=== PATIENT | male | born 1985 | race Two or more races ===

== ENCOUNTER 2024-08-07 19:58 | Inpatient (IN) | payer BC, OTHER ==
[~2024-08-07] VITALS: Ht 170.2 cm; Wt 77.7 kg
--- NOTE | 2024-08-07 20:23 | ED.PDOC ---
History of Present Illness HPI Comments 38-year-old male who comes in with chief complaint of generalized weakness going on for the past 2-3 weeks. The patient states that he also had a near syncopal episode that he is having some dizziness. The patient denies any abdominal pain but did have some vomiting as well as some diarrhea which she thinks is from his medications that he takes. He is complaining of some shortness a breath. He just states that he does not feel well so came to the emergency department's for evaluation. Time Seen by MD: 20:09 Reviewed Notes: Nurses Notes, Medications, Allergies (No allergies to medications) Allergies: Coded Allergies: No Known Drug Allergy (Verified Allergy, Unknown, 08/07/24) Information Source: Patient Mode of Arrival: Ambulatory Severity: Moderate Timing: Weeks Duration: Since onset Prehospital treatment: None Associated signs and symptoms No abdominal pain but the patient was having some vomiting as well as some shortness for breath Past Medical History PAST MEDICAL HISTORY: Cancer (Previous history of leukemia), DM Surgical History (Other): Previous spinal fusion Family History Family History: Family hx of DM, Family hx of Cancer Social History Smoker: Cigarettes Alcohol: Denies ETOH Use Drugs: Denies Drug Use Lives In: Home Constitutional: reports: fatigue, weakness; denies: chills, diaphoresis, fever, malaise, sweats, others EENTM: denies: blurred vision, double vision, ear bleeding, ear discharge, ear drainage, ear pain, ear ringing, eye pain, eye redness, hearing loss, mouth pain, mouth swelling, nasal discharge, nose bleeding, nose congestion, nose pain, photophobia, tearing, throat pain, throat swelling, voice changes, others Respiratory: reports: shortness of breath; denies: cough, hemoptysis, orthopnea, SOB at rest, SOB with excertion, stridor, wheezing, others Cardiovascular: denies: chest pain, dizzy spells, diaphoresis, Dyspnea on exertion, edema, irregular heart beat, left arm pain, lightheadedness, palpitations, PND, syncope, others Gastrointestinal: reports: diarrhea, nausea, vomiting; denies: abdomen distended, abdominal pain, blood streaked bowels, constipated, dysphagia, difficulty swallowing, hematemesis, melena, poor appetite, poor fluid intake, rectal bleeding, rectal pain, others Genitourinary: denies: burning, dysuria, flank pain, frequency, hematuria, incontinence, penile discharge, penile sore, pain, testicle pain, testicle swelling, urgency, others Neurological: denies: dizziness, fainting, headache, left sided numbness, left sided weakness, numbness, paresthesia, pre-existing deficit, right sided numbness, right sided weakness, seizure, speech problems, tingling, tremors, weakness, others Musculoskeletal: denies: back pain, gout, joint pain, joint swelling, muscle pain, muscle stiffness, neck pain, others Integumetry: denies: bruises, change in color, change in hair/nails, dryness, laceration, lesions, lumps, rash, wounds, others Allergic/Immunocompromised: denies: Difficulty Healing, Frequent Infections, Hives, Itching, others Hematologic/Lymphatic: denies: anemia, blood clots, easy bleeding, easy bruising, swollen glands, others Endocrine: denies: excessive hunger, excessive sweating, excessive thirst, excessive urination, flushing, intolerance to cold, intolerance to heat, unexplained weight gain, unexplained weight loss, others Psychiatric: denies: anxiety, bipolar disorder, depression, hopeless, panic disorder, schizophrenia, sleepless, suicidal, others Physical Exam General Appearance: Moderate Distress HEENT: Pale Conjuntivae (L), Pale Conjuntivae (R), Pharynx Normal, TMs Normal Neck: Full Range of Motion, Non-Tender, Normal, Normal Inspection Respiratory: Chest Non-Tender, Lungs Clear, No Accessory Muscle Use, No Respiratory Distress, Normal Breath Sounds Cardiovascular: No Edema, No JVD, No Murmur, No Gallop, Normal Peripheral Pulses, Regular Rate/Rhythm Breast Exam: Deferred Gastrointestinal: No Organomegaly, Non Tender, No Pulsatile Mass, Normal Bowel Sounds, Soft Genitalia: Deferred Pelvic: Deferred Rectal: Deferred Extremities: No calf tenderness, Normal capillary refill, Normal inspection, Normal range of motion, Non-tender, No pedal edema Musculoskeletal : Apperance: Normal Neurologic: Alert, tie sawyer II-XII nml as Tested, Motor Weakness, Normal Affect, Normal Mood, No Sensory Deficits Cerebellar Function: Normal Reflexes: Normal Skin: Dry, Normal Color, Warm Lymphatic: No Adenopathy Was a procedure done? Was a procedure done?: No Differential Dx Considerations may include: Generalized weakness, electrolyte imbalance, anemia, cancer X-Ray, Labs, Meds, VS Vital Signs Date Time Temp Pulse Resp B/P (MAP) Pulse Ox O2 Delivery O2 Flow Rate FiO2 08/07/24 20:25 98.4 112 16 129/82 (98) 100 98.4 Lab Test 08/07/24 21:26 08/07/24 20:29 Range/Units Urine Color Dark-yellow Yellow Urine Clarity Clear Clear Urine pH 5.5 5.0-9.0 Urine Specific [place] 1.031 1.001-1.035 Urine Protein Trace H Negative Urine Ketones Trace Negative Urine Blood Negative Negative /uL Urine Nitrite Negative Negative Urine Bilirubin Negative Negative Urine Urobilinogen 12 H Negative mg/dL Urine Leukocyte Esterase Negative Negative /uL Urine RBC 1 0 - 3 /hpf Urine Microscopic WBC 1 0-3 /HPF Urine Squamous Epithelial Cells None seen <5 /hpf Urine Bacteria Few H None Seen /hpf Urine Mucus Few None Seen Urine Glucose Normal Normal mg/dL White Blood Count 4.2 L 4.4-10.8 10^3/uL Red Blood Count 2.00 L 4.5-5.90 10^6/uL Hemoglobin 8.3 L 13.5-17.5 g/dL Hematocrit 23.5 L 41.0-53.0 % Mean Corpuscular Volume 117.8 H 80.0-100.0 fL Mean Corpuscular Hemoglobin 41.8 H 28.0-32.0 pg Mean Corpuscular Hemoglobin Concent 35.5 32.0-36.0 g/dL Red Cell Distribution Width 15.9 H 11.8-14.3 % Platelet Count 112 L 140-450 10^3/uL Mean Platelet Volume 7.6 6.9-10.8 fL Neutrophils (%) (Auto) 61.5 37.0-80.0 % Lymphocytes (%) (Auto) 35.0 10.0-50.0 % Monocytes (%) (Auto) 1.8 0.0-12.0 % Eosinophils (%) (Auto) 1.5 0.0-7.0 % Basophils (%) (Auto) 0.2 0.0-2.0 % Neutrophils # (Auto) 2.6 1.6-8.6 10 ^3/uL Lymphocytes # (Auto) 1.5 0.4-5.4 10 ^3/uL Monocytes # (Auto) 0.1 0-1.3 10 ^3/uL Eosinophils # (Auto) 0.1 0-0.8 10 ^3/uL Basophils # (Auto) 0 0-0.2 10 ^3/uL Nucleated Red Blood Cells 0.1 % Platelet Estimate Pending Sodium Level 138 136-145 mmol/L Potassium Level 4.3 3.5-5.1 mmol/L Chloride Level 102 98-107 mmol/L Carbon Dioxide Level 28 20-31 mmol/L Anion Gap 8 5-15 Blood Urea Nitrogen 17 9-23 mg/dL Creatinine 0.83 0.700-1.30 mg/dL Glomerular Filtration Rate Calc 113 >90 mL/min BUN/Creatinine Ratio 20.5 H 10.0-20.0 Serum Glucose 144 H 74-106 mg/dL Calcium Level 9.9 8.7-10.4 mg/dL IV Hep-Lock was established The patient's CBC shows a hemoglobin of 8.3 and hematocrit 23.5 The rest of the CBC is within normal limits The chemistry panel is within normal limits The patient has thrombocytopenia at 112 At this time, we are going to admit the patient Time of 1ST Reevaluation: 20:22 Reevaluation 1ST: Unchanged Patient Education/Counseling: Diagnosis, Treatment, Prognosis Family Education/Counseling: No Family Present Departure 1 Departure Time of Disposition: 21:56 Impression: Primary Impression: Severe anemia Additional Impression: Generalized weakness Disposition: ADMITTED INPATIENT [facility]mit to: [facility] Condition: Fair Critical Care Note Critical Care Time?: No Stability Stability form required: Yes Unstable for transfer: Telemetry monitoring (Telemetry monitoring required), ED Physician Assesment (Clinical assesment) Heart Score Heart Score: Heart Score Response (Comments) Value History N/A 0 EKG N/A 0 Age N/A 0 Risk Factors N/A 0 Troponin N/A 0 Total 0 TINY WEATHERS MD Aug 07, 2024 20:22
[2024-08-07 20:54] LABS: Basophils # (auto) 0 10 ^3/uL (0-0.2); Eosinophils # (auto) 0.1 10 ^3/uL (0-0.8); Eosinophils % (auto) 1.5 % (0.0-7.0); Hematocrit 23.5 % (41.0-53.0); Lymphocytes # (auto) 1.5 10 ^3/uL (0.4-5.4); Mean Corpuscular Hemoglobin 41.8 pg (28.0-32.0); Monocytes # (auto) 0.1 10 ^3/uL (0-1.3); Neutrophils # (auto) 2.6 10 ^3/uL (1.6-8.6); Nucleated Red Blood Cells % 0.1 %; White Blood Cell 4.2 10^3/uL (4.4-10.8)
[2024-08-07 20:55] LABS: Basophils % (auto) 0.2 % (0.0-2.0); Hemoglobin 8.3 g/dL (13.5-17.5); Mean Corpuscular Hgb Conc. 35.5 g/dL (32.0-36.0); Mean Corpuscular Volume 117.8 fL (80.0-100.0); Monocytes % (auto) 1.8 % (0.0-12.0); Neutrophils % (auto) 61.5 % (37.0-80.0); Platelet Count (auto) 112 10^3/uL (140-450); Red Cell Distribution Width 15.9 % (11.8-14.3)
[2024-08-07 20:59] LABS: Chloride 102 mmol/L (98-107); Potassium 4.3 mmol/L (3.5-5.1); Sodium 138 mmol/L (136-145)
[2024-08-07 21:00] LABS: Anion Gap 8 (5-15); Calcium 9.9 mg/dL (8.7-10.4); Carbon Dioxide 28 mmol/L (20-31)
[2024-08-07 21:05] LABS: BUN/Creatinine Ratio 20.5 (10.0-20.0); Blood Urea Nitrogen 17 mg/dL (9-23)
[2024-08-07 21:36] LABS: Glucose 144 mg/dL (74-106)
[2024-08-07 21:52] LABS: Urine Bacteria FEW /hpf (None Seen); Urine Blood Negative /uL (Negative); Urine Clarity Clear (Clear); Urine Color Dark-Yellow (Yellow); Urine Mucus FEW (None Seen); Urine Protein, UAD TRACE (Negative); Urine Specific Gravity 1.031 (1.001-1.035); Urine Squamous Epithelial Cell None Seen /hpf (<5); Urine Urobilinogen 12 mg/dL (Negative); Urine WBC 1 /HPF (0-3); Urine pH 5.5 (5.0-9.0)
[2024-08-07 22:10] LABS: Platelet Estimate Decreased
[2024-08-07 22:11] LABS: Anisocytosis Moderate; Macrocytosis Marked
[2024-08-07 22:12] LABS: Large Platelets FEW; Stomatocytes Few
[2024-08-07 22:13] LABS: Polychromasia Slight; Tear Drop Cells FEW
[2024-08-07] MEDS ORDERED: ONDANSETRON HCL 4 MG/2 ML VIAL IV PRN (23:15)
[2024-08-08 00:20] LABS: % Iron Saturation 58.3 % (20-55)
--- NOTE | 2024-08-08 00:22 | DVHHP2 ---
History of Present Illness Reason for Visit: Generalized weakness History of Present Illness 38-year-old male presents for evaluation of generalized weakness. Patient reports a two week history of generalized weakness with associated fatigue, nausea, shortness for breath. He reports a history of leukemia which was diagnosed at a young age. Denies any recent weight loss. No chest pain or palpitations. No other acute complaints reported. Past Medical History Leukemia, diabetes mellitus Past Surgical History Spinal fusion Family History Diabetes mellitus Smoke: <1 pack per day ALCOHOL: none Drugs: None Lives: with Family Review of Systems Review of Systems Review of systems are currently negative otherwise addressed in HPI. Allergies: Coded Allergies: No Known Drug Allergy (Verified Allergy, Unknown, 08/07/24) Medications Current Medications Medications Dose Ordered Sig/Sheela Route Start Time Stop Time Status Last Admin Dose Admin Ondansetron HCl 4 mg Q4HP PRN IV 08/07/24 23:15 Acetaminophen 650 mg Q6HP PRN PO 08/07/24 23:15 Exam Vital Signs Vital Signs Date Time Temp Pulse Resp B/P (MAP) Pulse Ox O2 Delivery O2 Flow Rate FiO2 08/07/24 20:25 98.4 112 16 129/82 (98) 100 98.4 Exam Gen: 38-year-old male in mild distress. Skin: Warm, dry, normal color and texture, no rash. HEENT: Normocephalic atraumatic, mucous membranes moist and pink. Neck: Cervical and supraclavicular nodes normal without enlargement, trachea is midline, thyroid gland is normal without masses. Pulmonary: Clear to auscultation and percussion bilaterally. Cardiac: Regular rate and rhythm. No murmur Abdomen: Soft, nontender, nondistended, bowel sounds present all 4 quadrants, no guarding, no rigidity, no organomegaly. Extremities: No cyanosis, clubbing, no edema Neuro: Cranial nerves II through XII grossly intact, normal affect and speech, no focal motor deficits. Labs/Xrays Labs Test 08/07/24 23:31 08/07/24 21:26 08/07/24 20:29 Range/Units Urine Color Dark-yellow Yellow Urine Clarity Clear Clear Urine pH 5.5 5.0-9.0 Urine Specific [place] 1.031 1.001-1.035 Urine Protein Trace H Negative Urine Ketones Trace Negative Urine Blood Negative Negative /uL Urine Nitrite Negative Negative Urine Bilirubin Negative Negative Urine Urobilinogen 12 H Negative mg/dL Urine Leukocyte Esterase Negative Negative /uL Urine RBC 1 0 - 3 /hpf Urine Microscopic WBC 1 0-3 /HPF Urine Squamous Epithelial Cells None seen <5 /hpf Urine Bacteria Few H None Seen /hpf Urine Mucus Few None Seen Urine Glucose Normal Normal mg/dL White Blood Count 4.2 L 4.4-10.8 10^3/uL Red Blood Count 2.00 L 4.5-5.90 10^6/uL Hemoglobin 8.3 L 13.5-17.5 g/dL Hematocrit 23.5 L 41.0-53.0 % Mean Corpuscular Volume 117.8 H 80.0-100.0 fL Mean Corpuscular Hemoglobin 41.8 H 28.0-32.0 pg Mean Corpuscular Hemoglobin Concent 35.5 32.0-36.0 g/dL Red Cell Distribution Width 15.9 H 11.8-14.3 % Platelet Count 112 L 140-450 10^3/uL Mean Platelet Volume 7.6 6.9-10.8 fL Neutrophils (%) (Auto) 61.5 37.0-80.0 % Lymphocytes (%) (Auto) 35.0 10.0-50.0 % Monocytes (%) (Auto) 1.8 0.0-12.0 % Eosinophils (%) (Auto) 1.5 0.0-7.0 % Basophils (%) (Auto) 0.2 0.0-2.0 % Neutrophils # (Auto) 2.6 1.6-8.6 10 ^3/uL Lymphocytes # (Auto) 1.5 0.4-5.4 10 ^3/uL Monocytes # (Auto) 0.1 0-1.3 10 ^3/uL Eosinophils # (Auto) 0.1 0-0.8 10 ^3/uL Basophils # (Auto) 0 0-0.2 10 ^3/uL Nucleated Red Blood Cells 0.1 % Platelet Estimate Decreased Large Platelets Few Polychromasia Slight Poikilocytosis (manual) Slight Anisocytosis (manual) Moderate Macrocytosis Marked Tear Drop Cells Few Stomatocytes Few Sodium Level 138 136-145 mmol/L Potassium Level 4.3 3.5-5.1 mmol/L Chloride Level 102 98-107 mmol/L Carbon Dioxide Level 28 20-31 mmol/L Anion Gap 8 5-15 Blood Urea Nitrogen 17 9-23 mg/dL Creatinine 0.83 0.700-1.30 mg/dL Glomerular Filtration Rate Calc 113 >90 mL/min BUN/Creatinine Ratio 20.5 H 10.0-20.0 Serum Glucose 144 H 74-106 mg/dL Calcium Level 9.9 8.7-10.4 mg/dL Assessment/Plan Assessment/Plan Assessment Symptomatic anemia Diabetes mellitus Pancytopenia History of leukemia Plan Admit the patient to [facility] to the hospitalist Arm panel pending Hematology consultation Resume home medications Continue treatment per orders. Plan discussed with: Patient My Orders Orders - NEETA MANUEL Procedure Category Date Status Time Burrows Stain Slide LAB 08/07/24 In Process 23:10 Iron Panel LAB 08/07/24 In Process 23:10 Type And Screen BBK 08/07/24 In Process 23:10 Precautions: LEIF 08/07/24 In Process Neutropenic 23:10 * Hematology/Oncology CONS 08/07/24 Transmitted Consult 23:10 Consistent DIET 08/08/24 Transmitted Carb(Ccho)Diabetes Breakfast Admit ADMIT 08/07/24 Transmitted 23:10 Ondansetron Hcl PHA 08/07/24 In Process (Zofran) 23:15 Condition: Stable LEIF 08/07/24 In Process 23:10 Acetaminophen Tablet PHA 08/07/24 In Process (Tylenol Tablet) 23:15 Bedrest With Bathroom LEIF 08/07/24 In Process Privileg 23:10 Date of Service: Aug 07, 2024 Billing Provider: NEETA MANUEL Common Visit Codes: [id number] INP/OBS CARE (HIGH) NEETA MANUEL Aug 08, 2024 00:22
[2024-08-08 02:25] LABS: Rapid Influenza A Negative (Negative); Rapid Influenza B Negative (Negative)
[2024-08-08 02:26] LABS: COVID19 ANTIGEN SOFIA FIA NEGATIVE (NEGATIVE)
[2024-08-08 04:13] VITALS: PULSE 66; RESP 12; O2SAT 98
[2024-08-08] MEDS: SODIUM CHLORIDE 0.9% 500 ML IV ONE (04:28)
[2024-08-08] MEDS: ACETAMINOPHEN 325 MG TAB PO PRN (05:26)
[2024-08-08 08:06] VITALS: PULSE 70; RESP 16; O2SAT 96
[2024-08-08 14:45] VITALS: BP 105/66; PULSE 106; RESP 20; TEMP 98.9; O2SAT 98
[2024-08-08] MEDS ORDERED: DOCUSATE SOD 100 MG CAP PO PRN (15:15)
[2024-08-08] MEDS ORDERED: DEXTROSE (50%) 50ML SYRG IV PRN (15:15)
[2024-08-08] MEDS ORDERED: HYDROcodone-ACET 5/325MG TAB PO PRN (15:15)
--- NOTE | 2024-08-08 15:26 | DVHPN2 ---
Subjective Patient reports having generalized weakness, weight loss, unintentional, occasional blurry vision Reviewed: Care Plan, H&P, Labs, Medications, Previous Orders Changes from previous H/P or p: No Changes General: Per HPI Objective Vitals Vital Signs Date Time Temp Pulse Resp B/P (MAP) Pulse Ox O2 Delivery O2 Flow Rate FiO2 08/08/24 14:28 98.2 98 18 115/76 (89) 100 98.2 08/08/24 08:06 Room Air* 0 21 Intake/Output Intake and Output 08/08/24 07:00 Intake Total 500 ml Balance 500 ml Intake IV Total 500 ml General Appearance: Alert, Oriented X3, Cooperative, No acute distress HEENT: Atraumatic, PERRLA Lungs: Clear to auscultation, Normal air movement Cardiovascular: Normal S1, Normal S2 Abdomen: Normal bowel sounds, Soft Skin: Dry, Intact, Other (Jaundice) Medications Current Medications Medications Dose Ordered Sig/Sheela Route Start Time Stop Time Status Last Admin Dose Admin Ondansetron HCl 4 mg Q4HP PRN IV 08/07/24 23:15 Acetaminophen 650 mg Q6HP PRN PO 08/07/24 23:15 08/08/24 05:26 650 MG Laboratory Results Laboratory Tests 08/07/24 20:29 Chemistry Test 08/07/24 20:29 Calcium Level 9.9 mg/dL (8.7-10.4) Urinalysis Test 08/07/24 21:26 Urine Color Dark-yellow (Yellow) Urine Clarity Clear (Clear) Urine pH 5.5 (5.0-9.0) Urine Specific [place] 1.031 (1.001-1.035) Urine Protein Trace (Negative) H Urine Ketones Trace (Negative) Urine Blood Negative /uL (Negative) Urine Nitrite Negative (Negative) Urine Bilirubin Negative (Negative) Urine Urobilinogen 12 mg/dL (Negative) H Urine Leukocyte Esterase Negative /uL (Negative) Urine RBC 1 /hpf (0 - 3) Urine Microscopic WBC 1 /HPF (0-3) Urine Squamous Epithelial Cells None seen /hpf (<5) Urine Bacteria Few /hpf (None Seen) H Urine Mucus Few (None Seen) Urine Glucose Normal mg/dL (Normal) Labs and/or images reviewed: Labs reviewed by me, Image(s) reviewed by me Assessment/Plan Assessment/Plan Impression: -pancytopenia -diabetes mellitus -jaundice, rule out liver disease -dyslipidemia Plan: -liver ultrasound -Brandon test, peripheral smear, LDH -check vitamin-D, B12, thiamine, folic acid -check A1c -regular insulin sliding scale -pain management Total time spent with patient discussing and formulating plan of care: 35 minutes. This medical document was created using an electronic medical record system with [employer] dictation system. Although this document has been carefully reviewed, there may still be some phonetic and typographical errors. These areas are purely typographical due to imperfections of the software programs, and do not reflect any compromise in the patient's medical care. Plan discussed with: Patient, Other (RN) My Orders Orders - AGUSTIN MONCADA NP Procedure Category Date Status Time Comprehensive LAB 08/08/24 Transmitted Metabolic Panel 15:15 Vitamin D 25-Hydroxy LAB 08/08/24 Transmitted D2 + D3 15:15 Vitamin B1 (Thiamine) LAB 08/08/24 Transmitted 15:15 Vitamin B12 LAB 08/08/24 Transmitted 15:15 Burrows Stain Slide LAB 08/08/24 Transmitted 15:15 Haptoglobin LAB 08/08/24 Transmitted 15:15 Erythrocyte LAB 08/08/24 Transmitted Sedimentation Rate 15:15 C-Reactive Protein LAB 08/08/24 Transmitted 15:15 Hydrocodone-Acet PHA 08/08/24 Logged 5/325mg Tab ([place] 15:15 Acetaminophen Tab Or PHA 08/08/24 Logged Cap (Tylenol Tablet 15:15 Docusate Sodium PHA 08/08/24 Transmitted Capsule (Colace 15:15 LIVER US 08/08/24 Transmitted 15:15 Hemoglobin A1c LAB 08/08/24 Transmitted 15:15 Lipid Panel LAB 08/08/24 Transmitted 15:15 Glucose Blood PHA 08/08/24 Transmitted (Accu-Chek Comfort 17:00 Mild Sliding Scale PHA 08/08/24 Transmitted 17:00 Dextrose 50% Syringe PHA 08/08/24 Transmitted 15:15 Date of Service: Aug 08, 2024 Billing Provider: AGUSTIN MONCADA NP Common Visit Codes: [id number] INP/OBS CARE(HIGH) AGUSTIN MONCADA NP Aug 08, 2024 15:26
--- NOTE | 2024-08-08 16:10 | DVH ---
INDICATION: jaundiced TECHNIQUE: Multiple real-time sonographic images were obtained of the right upper quadrant. COMPARISON: None FINDINGS: The liver demonstrates homogeneous echotexture without focal mass lesions. The liver measu res 15 cm. There is no intrahepatic or extrahepatic ductal dilatation. The common duct measures 0.5 cm. The gallbladder is without evidence of stone or sludge. The gallbladder wall measures 0.2 cm and is w ithin normal limits. The right kidney measures 10.7 cm. The right kidney is normal in contour, size, and shape. The echoge nicity is normal. There is no hydronephrosis. The pancreas is not well visualized due to overlying bowel gas. IMPRESSION: Unremarkable right upper quadrant sonogram.
[2024-08-08] MEDS: InsuLIN REG 1unit/0.01ml Soln (100units/ml) SC SCH (17:00)
[2024-08-08 17:30] VITALS: BP 102/63; PULSE 104; RESP 19; TEMP 98.9; O2SAT 99
[2024-08-08] MEDS: ACCU-CHEK COMFORT CURVE STRIP VI SCH (17:42)
[2024-08-08 17:48] LABS: Albumin 4.1 g/dL (3.2-4.8); Alkaline Phosphatase 54 U/L (46-116); Anion Gap 7 (5-15); BUN/Creatinine Ratio 22.1 (10.0-20.0); Blood Urea Nitrogen 15 mg/dL (9-23); Calcium 9.2 mg/dL (8.7-10.4); Carbon Dioxide 28 mmol/L (20-31); Chloride 105 mmol/L (98-107); Cholesterol 98 mg/dL (< 200); LDL Cholesterol 51 mg/dL (< 100); Potassium 3.9 mmol/L (3.5-5.1); Sodium 140 mmol/L (136-145); Total Protein 6.2 g/dL (5.7-8.2)
[2024-08-08 17:49] LABS: Alanine Aminotransferase 59 U/L (7-40); Aspartate Aminotransferase 65 U/L (13-40); Bilirubin, Total 4.8 mg/dL (0.2-1.0); Glucose 144 mg/dL (74-106); HDL Cholesterol 16 mg/dL (40-59); Triglycerides 180 mg/dL (< 150)
[2024-08-08] MEDS ORDERED: METF-372 PO (18:02)
[2024-08-08] MEDS ORDERED: DAPA1TAB4 PO (18:02)
[2024-08-08 18:23] LABS: Erythrocyte Sedimentation Rate 25 mm/hr (0-20)
[2024-08-08 20:00] VITALS: PULSE 104; RESP 20; O2SAT 100
[2024-08-08 20:35] VITALS: BP 106/62; PULSE 104; RESP 20; TEMP 98.2; O2SAT 100
[2024-08-09] VITALS (9 sets, daily range): BP systolic 91–105; BP diastolic 51–67; PULSE 59–104; RESP 16–20; TEMP 98–98.9; O2SAT 88–99
--- NOTE | 2024-08-09 11:05 | DVH ---
Exam: CT CT CHEST/AB/PL W CON- IV ONLY History: RULE OUT METASTATIC CANCER COMPARISON: None Technique: Multidetector spiral CT of the abdomen and pelvis was performed from lung bases to pubic s ymphysis. Intravenous contrast was administered during this examination. Portal venous imaging was o btained. Axial, coronal and sagittal multiplanar reformats were performed by the technologist on a [employer] workstation. Radiation Dose : 1. Abdomen/Pelvis: CTDIvol 8.52mGy, DLP 579.42 mGy*cm. Findings: Lung Bases: No acute or significant lung base finding. Normal heart size. No pleural or pericardial effusion. Liver: Hepatic steatosis. Gallbladder and Biliary Tree: Unremarkable Spleen: Splenomegaly 14.1 cm. Pancreas: The pancreas is normal in appearance without focal lesions or abnormal enhancement. Adrenal Glands: Unremarkable Kidneys: No hydronephrosis. Bladder: Unremarkable Bowel: The stomach is grossly normal in appearance. Small bowel and colon are normal in caliber and d istribution. The appendix is not visualized; however, no secondary findings of acute appendicitis daniel ntified. Ascites: Absent Lymphadenopathy: No mesenteric, retroperitoneal or periportal lymphadenopathy. Abdominal Wall and Mesentery: Unremarkable. Vasculature: The visualized abdominal aorta is normal in size and caliber. Abdominal and pelvic vess els demonstrate normal enhancement. Pelvic Organs: Unremarkable Musculoskeletal: No aggressive focal bony lesions, acute fractures or dislocation. Lumbosacral spinal fixation IMPRESSION: Spleen is mildly enlarged measuring 14.1 cm, craniocaudal. Hepatic steatosis. Radiation optimization: All CT scans at this facility use at least one of these dose optimization kaylah hniques: automated exposure control mA and/or kV adjustment per patient size (includes targeted exam s where dose is matched to clinical indication) or iterative reconstruction.
[2024-08-09] MEDS: ACETAMINOPHEN 500 MG TAB or CAP PO PRN (12:32)
--- NOTE | 2024-08-09 13:31 | DVHPN2 ---
Subjective Patient denies any symptoms, Reviewed: Care Plan, H&P, Labs, Medications, Previous Orders Changes from previous H/P or p: No Changes General: Per HPI Objective Vitals Vital Signs Date Time Temp Pulse Resp B/P (MAP) Pulse Ox O2 Delivery O2 Flow Rate FiO2 08/09/24 09:00 98.2 59 17 101/63 (76) 93 98.2 08/08/24 20:00 Room Air* 0 21 Intake/Output Intake and Output 08/09/24 07:00 Intake Total 1110 ml Balance 1110 ml Intake Oral 1110 ml # Voids 5 General Appearance: Alert, Oriented X3, Cooperative, No acute distress HEENT: Atraumatic, PERRLA Lungs: Clear to auscultation, Normal air movement Cardiovascular: Normal S1, Normal S2 Abdomen: Normal bowel sounds, Soft Skin: Dry, Intact, Other (Jaundice) Psych/Mental Status: Mental status NL, Mood NL Medications Current Medications Medications Dose Ordered Sig/Sheela Route Start Time Stop Time Status Last Admin Dose Admin Ondansetron HCl 4 mg Q4HP PRN IV 08/07/24 23:15 Acetaminophen/ Hydrocodone Bitart 1 tab Q6HPRN PRN PO 08/08/24 15:15 Acetaminophen 500 mg Q8HP PRN PO 08/08/24 15:15 08/09/24 12:32 500 MG Docusate Sodium 100 mg BID PRN PO 08/08/24 15:15 Diagnostic Test (Pha) 1 strip ACHS 08/08/24 17:00 08/09/24 12:23 1 STRIP Insulin Human Regular ACHS SC 08/08/24 17:00 08/08/24 21:13 2 UNITS Dextrose 50 ml UD PRN IV 08/08/24 15:15 Laboratory Results Laboratory Tests 08/07/24 20:29 08/08/24 16:57 Chemistry Test 08/08/24 16:57 Albumin 4.1 g/dL (3.2-4.8) Calcium Level 9.2 mg/dL (8.7-10.4) Total Protein 6.2 g/dL (5.7-8.2) Lipid panel Test 08/08/24 16:57 Cholesterol Level 98 mg/dL (< 200) HDL Cholesterol 16 mg/dL (40-59) L Triglycerides Level 180 mg/dL (< 150) H LFT Test 08/08/24 16:57 Alanine Aminotransferase (ALT) 59 U/L (7-40) H Alkaline Phosphatase 54 U/L (46-116) Aspartate Amino Transferase (AST) 65 U/L (13-40) H Total Bilirubin 4.8 mg/dL (0.2-1.0) H HgA1c, TSH Test 08/08/24 16:57 Hemoglobin A1c 5.9 % A1C (<5.7) H Urinalysis Test 08/07/24 21:26 Urine Color Dark-yellow (Yellow) Urine Clarity Clear (Clear) Urine pH 5.5 (5.0-9.0) Urine Specific [place] 1.031 (1.001-1.035) Urine Protein Trace (Negative) H Urine Ketones Trace (Negative) Urine Blood Negative /uL (Negative) Urine Nitrite Negative (Negative) Urine Bilirubin Negative (Negative) Urine Urobilinogen 12 mg/dL (Negative) H Urine Leukocyte Esterase Negative /uL (Negative) Urine RBC 1 /hpf (0 - 3) Urine Microscopic WBC 1 /HPF (0-3) Urine Squamous Epithelial Cells None seen /hpf (<5) Urine Bacteria Few /hpf (None Seen) H Urine Mucus Few (None Seen) Urine Glucose Normal mg/dL (Normal) Labs and/or images reviewed: Labs reviewed by me, Image(s) reviewed by me Assessment/Plan Assessment/Plan Impression: -pancytopenia -diabetes mellitus -jaundice, rule out liver disease -dyslipidemia Plan: Events: CT scan of chest, abdomen, pelvis with contrast was ordered. Results reviewed with the patient. Discussed elevated LDH, pancytopenia, as well as direct indirect Brandon test being negative. Patient was agreeable for bone marrow biopsy. IR consultation placed. -liver ultrasound: unremarkable -gentle IV hydration -higher consultation for bone marrow biopsy -regular insulin sliding scale -pain management Total time spent with patient discussing and formulating plan of care: 35 minutes. This medical document was created using an electronic medical record system with [employer] dictation system. Although this document has been carefully reviewed, there may still be some phonetic and typographical errors. These areas are purely typographical due to imperfections of the software programs, and do not reflect any compromise in the patient's medical care. Plan discussed with: Patient, Other (RN) My Orders Orders - AGUSTIN MONCADA [facility] Procedure Category Date Status Time Vitamin D 25-Hydroxy LAB 08/08/24 In Process D2 + D3 15:15 Vitamin B1 (Thiamine) LAB 08/08/24 In Process 15:15 Haptoglobin LAB 08/08/24 In Process 15:15 Hydrocodone-Acet PHA 08/08/24 In Process 5/325mg Tab ([place] 15:15 Acetaminophen Tab Or PHA 08/08/24 In Process Cap (Tylenol Tablet 15:15 Docusate Sodium PHA 08/08/24 In Process Capsule (Colace 15:15 LIVER US 08/08/24 Resulted 15:15 Glucose Blood PHA 08/08/24 In Process (Accu-Chek Comfort 17:00 Insulin R (Human) PHA 08/08/24 In Process (Insulin R) 17:00 Dextrose 50% Syringe PHA 08/08/24 In Process 15:15 Ct Chest/Ab/Pl W Con- CT 08/09/24 Resulted Iv Only 07:05 * Radiologist Consult CONS 08/09/24 Transmitted 12:54 Date of Service: Aug 09, 2024 Billing Provider: AGUSTIN MONCADA NP Common Visit Codes: [id number] INP/OBS CARE(HIGH) AGUSTIN MONCADA NP Aug 09, 2024 13:31
[2024-08-09 14:14] LABS: INR 1.07 (0.9-1.15); Partial Thromboplastin Time 23.9 SEC (24.5-34.5); Prothrombin Time 11.3 sec (9.3-11.8)
[2024-08-09 15:32] LABS: Basophils # (auto) 0 10 ^3/uL (0-0.2); Basophils % (auto) 0.2 % (0.0-2.0); Eosinophils # (auto) 0 10 ^3/uL (0-0.8); Eosinophils % (auto) 1.5 % (0.0-7.0); Hematocrit 18.6 % (41.0-53.0); Lymphocytes # (auto) 1.4 10 ^3/uL (0.4-5.4); Lymphocytes % (auto) 44.7 % (10.0-50.0); Mean Corpuscular Hemoglobin 41.8 pg (28.0-32.0); Mean Corpuscular Volume 114.5 fL (80.0-100.0); Monocytes # (auto) 0.1 10 ^3/uL (0-1.3); Monocytes % (auto) 2.1 % (0.0-12.0); Neutrophils # (auto) 1.6 10 ^3/uL (1.6-8.6); Neutrophils % (auto) 51.5 % (37.0-80.0); Nucleated Red Blood Cells % 0.7 %; Platelet Count (auto) 95 10^3/uL (140-450); Red Blood Cells 1.62 10^6/uL (4.5-5.90); Red Cell Distribution Width 16.1 % (11.8-14.3)
[2024-08-09 15:35] LABS: Mean Corpuscular Hgb Conc. 36.5 g/dL (32.0-36.0)
[2024-08-09 15:36] LABS: Hemoglobin 6.8 g/dL (13.5-17.5)
[2024-08-09] MEDS: SODIUM CHLORIDE 0.9% 1,000 ML IV ONE (15:47)
[2024-08-09 18:40] LABS: Platelet Estimate Decreased
[2024-08-09 18:44] LABS: Macrocytosis Marked
[2024-08-10] VITALS (7 sets, daily range): BP systolic 98–120; BP diastolic 61–76; PULSE 66–99; RESP 16–18; TEMP 97.4–98.7; O2SAT 96–100
[2024-08-10 06:07] LABS: Haptoglobin <10 mg/dL (17-317)
--- NOTE | 2024-08-10 11:12 | DVHPN2 ---
Reviewed: Care Plan, H&P, Labs, Medications, Previous Orders Changes from previous H/P or p: No Changes General: Per HPI Objective Vitals Vital Signs Date Time Temp Pulse Resp B/P (MAP) Pulse Ox O2 Delivery O2 Flow Rate FiO2 08/10/24 08:35 97.9 86 17 102/61 (75) 97 97.9 08/10/24 08:00 Room Air* 0 21 Intake/Output Intake and Output 08/10/24 07:00 Intake Total 2060 ml Balance 2060 ml Intake Oral 1160 ml Blood Product 300 ml Other 600 ml # Voids 5 # Bowel Movements 2 General Appearance: Alert, Oriented X3, Cooperative, No acute distress HEENT: Atraumatic, PERRLA Lungs: Clear to auscultation, Normal air movement Cardiovascular: Normal S1, Normal S2 Abdomen: Normal bowel sounds, Soft Skin: Dry, Intact, Other (Jaundice) Psych/Mental Status: Mental status NL, Mood NL Medications Current Medications Medications Dose Ordered Sig/Sheela Route Start Time Stop Time Status Last Admin Dose Admin Ondansetron HCl 4 mg Q4HP PRN IV 08/07/24 23:15 Acetaminophen/ Hydrocodone Bitart 1 tab Q6HPRN PRN PO 08/08/24 15:15 Acetaminophen 500 mg Q8HP PRN PO 08/08/24 15:15 08/09/24 12:32 500 MG Docusate Sodium 100 mg BID PRN PO 08/08/24 15:15 Diagnostic Test (Pha) 1 strip ACHS 08/08/24 17:00 08/10/24 06:18 1 STRIP Insulin Human Regular ACHS SC 08/08/24 17:00 08/09/24 22:52 2 UNITS Dextrose 50 ml UD PRN IV 08/08/24 15:15 Laboratory Results Laboratory Tests 08/08/24 16:57 08/09/24 15:14 Coagulation Test 08/09/24 13:34 Prothrombin Time 11.3 sec (9.3-11.8) Prothrombin Time INR 1.07 (0.9-1.15) Activated Partial Thromboplast Time 23.9 SEC (24.5-34.5) L Urinalysis Test 08/07/24 21:26 Urine Color Dark-yellow (Yellow) Urine Clarity Clear (Clear) Urine pH 5.5 (5.0-9.0) Urine Specific [place] 1.031 (1.001-1.035) Urine Protein Trace (Negative) H Urine Ketones Trace (Negative) Urine Blood Negative /uL (Negative) Urine Nitrite Negative (Negative) Urine Bilirubin Negative (Negative) Urine Urobilinogen 12 mg/dL (Negative) H Urine Leukocyte Esterase Negative /uL (Negative) Urine RBC 1 /hpf (0 - 3) Urine Microscopic WBC 1 /HPF (0-3) Urine Squamous Epithelial Cells None seen /hpf (<5) Urine Bacteria Few /hpf (None Seen) H Urine Mucus Few (None Seen) Urine Glucose Normal mg/dL (Normal) Labs and/or images reviewed: Labs reviewed by me, Image(s) reviewed by me Assessment/Plan Assessment/Plan Impression: -pancytopenia -diabetes mellitus -jaundice, rule out liver disease -dyslipidemia Plan: Events: CT scan of chest, abdomen, pelvis with contrast was ordered. Results reviewed with the patient. Discussed elevated LDH, pancytopenia, as well as direct indirect Brandon test being negative. Patient was agreeable for bone marrow biopsy. IR consultation placed. -liver ultrasound: unremarkable -gentle IV hydration -higher consultation for bone marrow biopsy -regular insulin sliding scale -pain management 08/10/2024: pending a bone marrow biopsy from IR also consulting oncology/gastroenterology Total time spent with patient discussing and formulating plan of care: 35 minutes. Plan discussed with: Patient Date of Service: Aug 10, 2024 Billing Provider: ROJELIO BRANCH DO Common Visit Codes: [id number] INP/OBS CARE(HIGH) ROJELIO BRANCH DO Aug 10, 2024 11:11
[2024-08-10 12:10] LABS: Albumin 4.4 g/dL (3.2-4.8); Alkaline Phosphatase 56 U/L (46-116); Anion Gap 6 (5-15); BUN/Creatinine Ratio 13.7 (10.0-20.0); Blood Urea Nitrogen 10 mg/dL (9-23); Calcium 9.3 mg/dL (8.7-10.4); Carbon Dioxide 28 mmol/L (20-31); Chloride 105 mmol/L (98-107); Potassium 4.4 mmol/L (3.5-5.1); Sodium 139 mmol/L (136-145); Total Protein 6.6 g/dL (5.7-8.2)
[2024-08-10 12:21] LABS: Alanine Aminotransferase 60 U/L (7-40); Aspartate Aminotransferase 68 U/L (13-40); Glucose 165 mg/dL (74-106)
[2024-08-10 12:28] LABS: Basophils # (auto) 0 10 ^3/uL (0-0.2); Basophils % (auto) 0.3 % (0.0-2.0); Eosinophils # (auto) 0 10 ^3/uL (0-0.8); Eosinophils % (auto) 1.5 % (0.0-7.0); Hematocrit 23.2 % (41.0-53.0); Hemoglobin 8.2 g/dL (13.5-17.5); Lymphocytes # (auto) 1.2 10 ^3/uL (0.4-5.4); Lymphocytes % (auto) 38.6 % (10.0-50.0); Mean Corpuscular Hemoglobin 40.1 pg (28.0-32.0); Mean Corpuscular Hgb Conc. 35.6 g/dL (32.0-36.0); Mean Corpuscular Volume 112.7 fL (80.0-100.0); Monocytes # (auto) 0.1 10 ^3/uL (0-1.3); Monocytes % (auto) 1.7 % (0.0-12.0); Neutrophils # (auto) 1.9 10 ^3/uL (1.6-8.6); Neutrophils % (auto) 57.9 % (37.0-80.0); Nucleated Red Blood Cells % 0.4 %; Platelet Count (auto) 98 10^3/uL (140-450); Red Blood Cells 2.06 10^6/uL (4.5-5.90); White Blood Cell 3.2 10^3/uL (4.4-10.8)
[2024-08-10 12:30] LABS: Red Cell Distribution Width 21.7 % (11.8-14.3)
[2024-08-10 12:49] LABS: Macrocytosis Marked; Platelet Estimate Decreased
[2024-08-10 12:50] LABS: Anisocytosis Moderate; Tear Drop Cells FEW
--- NOTE | 2024-08-10 18:18 | DVHINCON2 ---
Date of service: Aug 10, [address] Collazo Reason for Consultation Weakness anemia nausea fatigue shortness of breath History of Present Illness This 38-year-old male presented with complaints of generalized weakness nausea anorexia fatigue and shortness of breath. 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 and has had therapy until about the age of 9 or so Denies any fever chills or other systemic symptoms And was found to be anemic as well as having low white count and platelet count No other gross GI symptoms at this time No bleeding no fever chills or other systemic symptoms Past Medical History History of leukemia diabetes Past Surgical History Surgically spinal Family History: Diabetes mellitus G8 MOTHER G8 FATHER FH: cancer G8 MOTHER G8 FATHER Family History Noncontributory Social History Denies smoking or drinking Allergies: Coded Allergies: No Known Drug Allergy (Verified Allergy, Unknown, 08/07/24) Home Meds Reported Medications Dapagliflozin Propanediol (Farxiga) 10 Mg Tab, 10 MG PO DAILY, TAB 08/08/24 Metformin Hydrochloride (Metformin Hcl) 1,000 Mg Tab, 1 TAB PO BID, #60 TAB 5 Refills 08/08/24 Review of Systems Noncontributory Vital Signs Vital Signs Date Time Temp Pulse Resp B/P (MAP) Pulse Ox O2 Delivery O2 Flow Rate FiO2 08/10/24 16:51 98.2 99 18 107/76 (86) 100 98.2 08/10/24 08:00 Room Air* 0 21 Physical Exam Originally built and nourished male in no acute distress Alert and oriented Vital stable Lungs are clear Cardiovascular unremarkable Abdomen is soft no tenderness no rigidity no guarding no masses Extremities no edema neurological grossly intact Labs/Diagnostic Data Labs Test 08/10/24 16:39 08/10/24 11:36 08/09/24 13:34 08/08/24 16:57 Range/Units POC Glucose 97 70-106 mg/dl White Blood Count 3.2 L 4.4-10.8 10^3/uL Red Blood Count 2.06 L 4.5-5.90 10^6/uL Hemoglobin 8.2 #L 13.5-17.5 g/dL Hematocrit 23.2 #L 41.0-53.0 % Mean Corpuscular Volume 112.7 H 80.0-100.0 fL Mean Corpuscular Hemoglobin 40.1 H 28.0-32.0 pg Mean Corpuscular Hemoglobin Concent 35.6 32.0-36.0 g/dL Red Cell Distribution Width 21.7 H 11.8-14.3 % Platelet Count 98 L 140-450 10^3/uL Mean Platelet Volume 8.4 6.9-10.8 fL Neutrophils (%) (Auto) 57.9 37.0-80.0 % Lymphocytes (%) (Auto) 38.6 10.0-50.0 % Monocytes (%) (Auto) 1.7 0.0-12.0 % Eosinophils (%) (Auto) 1.5 0.0-7.0 % Basophils (%) (Auto) 0.3 0.0-2.0 % Neutrophils # (Auto) 1.9 1.6-8.6 10 ^3/uL Lymphocytes # (Auto) 1.2 0.4-5.4 10 ^3/uL Monocytes # (Auto) 0.1 0-1.3 10 ^3/uL Eosinophils # (Auto) 0 0-0.8 10 ^3/uL Basophils # (Auto) 0 0-0.2 10 ^3/uL Nucleated Red Blood Cells 0.4 % Platelet Estimate Decreased Poikilocytosis (manual) Slight Anisocytosis (manual) Moderate Macrocytosis Marked Tear Drop Cells Few Sodium Level 139 136-145 mmol/L Potassium Level 4.4 3.5-5.1 mmol/L Chloride Level 105 98-107 mmol/L Carbon Dioxide Level 28 20-31 mmol/L Anion Gap 6 5-15 Blood Urea Nitrogen 10 9-23 mg/dL Creatinine 0.73 0.700-1.30 mg/dL Glomerular Filtration Rate Calc 118 >90 mL/min BUN/Creatinine Ratio 13.7 10.0-20.0 Serum Glucose 165 H 74-106 mg/dL Calcium Level 9.3 8.7-10.4 mg/dL Total Bilirubin 5.0 H 0.2-1.0 mg/dL Aspartate Amino Transferase (AST) 68 H 13-40 U/L Alanine Aminotransferase (ALT) 60 H 7-40 U/L Alkaline Phosphatase 56 46-116 U/L Total Protein 6.6 5.7-8.2 g/dL Albumin 4.4 3.2-4.8 g/dL Prothrombin Time 11.3 9.3-11.8 sec Prothrombin Time INR 1.07 0.9-1.15 Activated Partial Thromboplast Time 23.9 L 24.5-34.5 SEC Erythrocyte Sedimentation Rate 25 H 0-20 mm/hr Haptoglobin <10 L 17-317 mg/dL Hemoglobin A1c 5.9 H <5.7 % A1C Lactate Dehydrogenase 2184 H 120-246 U/L C-Reactive Protein High Sensitivity 0.20 <1.0 mg/dL Triglycerides Level 180 H < 150 mg/dL Cholesterol Level 98 < 200 mg/dL LDL Cholesterol 51 < 100 mg/dL HDL Cholesterol 16 L 40-59 mg/dL Vitamin B12 Level 54 L 211-911 pg/mL Test 08/08/24 00:57 08/07/24 23:31 08/07/24 21:26 08/07/24 20:29 Range/Units Influenza Type A Antigen Negative Negative Influenza Type B Antigen Negative Negative SARS-CoV-2 Antigen (Rapid) Negative NEGATIVE Iron Level 168 65-175 ug/dL Total Iron Binding Capacity 288 250-425 ug/dL Percent Iron Saturation 58.3 H 20-55 % Urine Color Dark-yellow Yellow Urine Clarity Clear Clear Urine pH 5.5 5.0-9.0 Urine Specific [place] 1.031 1.001-1.035 Urine Protein Trace H Negative Urine Ketones Trace Negative Urine Blood Negative Negative /uL Urine Nitrite Negative Negative Urine Bilirubin Negative Negative Urine Urobilinogen 12 H Negative mg/dL Urine Leukocyte Esterase Negative Negative /uL Urine RBC 1 0 - 3 /hpf Urine Microscopic WBC 1 0-3 /HPF Urine Squamous Epithelial Cells None seen <5 /hpf Urine Bacteria Few H None Seen /hpf Urine Mucus Few None Seen Urine Glucose Normal Normal mg/dL Large Platelets Few Polychromasia Slight Stomatocytes Few Assessment 38-year-old male with a history of weakness tiredness and fatigue and shortness of breath has history of leukemia and pancytopenia now had some nausea anorexia and some GI symptoms no gross GI bleeding hemoglobin was found to be 8.3 g with platelets of 112 and white count of 4.2 No evidence and agree gross bleeding He is scheduled for a bone marrow evaluation Plan/Recommendation We will recommend to await the bone marrow results and Hematology consult The bone marrow is normal may need further workup including stool studies stool for Hemoccult and other GI workup as necessary Recommend symptomatic treatment for the time being Thank you Dr. Estephanie Bledsoe discussed with: Patient MELBA CHRIS MD Aug 10, 2024 18:17
[2024-08-11] VITALS (8 sets, daily range): BP systolic 94–110; BP diastolic 49–68; PULSE 61–90; RESP 16–18; TEMP 97.4–99; O2SAT 91–100
--- NOTE | 2024-08-11 11:07 | DVHPN2 ---
Reviewed: Care Plan, H&P, Labs, Medications, Previous Orders Changes from previous H/P or p: No Changes General: Per HPI Objective Vitals Vital Signs Date Time Temp Pulse Resp B/P (MAP) Pulse Ox O2 Delivery O2 Flow Rate FiO2 08/11/24 08:32 99.0 61 16 95/49 (64) 93 99.0 08/11/24 08:00 Room Air* 0 21 Intake/Output Intake and Output 08/11/24 07:00 Intake Total 2500 ml Balance 2500 ml Intake Oral 1900 ml IV Total 600 ml # Voids 8 # Bowel Movements 2 General Appearance: Alert, Oriented X3, Cooperative, No acute distress HEENT: Atraumatic, PERRLA Lungs: Clear to auscultation, Normal air movement Cardiovascular: Normal S1, Normal S2 Abdomen: Normal bowel sounds, Soft Skin: Dry, Intact, Other (Jaundice) Psych/Mental Status: Mental status NL, Mood NL Medications Current Medications Medications Dose Ordered Sig/Sheela Route Start Time Stop Time Status Last Admin Dose Admin Ondansetron HCl 4 mg Q4HP PRN IV 08/07/24 23:15 Acetaminophen/ Hydrocodone Bitart 1 tab Q6HPRN PRN PO 08/08/24 15:15 Acetaminophen 500 mg Q8HP PRN PO 08/08/24 15:15 08/09/24 12:32 500 MG Docusate Sodium 100 mg BID PRN PO 08/08/24 15:15 Diagnostic Test (Pha) 1 strip ACHS 08/08/24 17:00 08/11/24 07:18 1 STRIP Insulin Human Regular ACHS SC 08/08/24 17:00 08/10/24 11:32 2 UNITS Dextrose 50 ml UD PRN IV 08/08/24 15:15 Laboratory Results Laboratory Tests 08/10/24 11:36 Chemistry Test 08/10/24 11:36 Albumin 4.4 g/dL (3.2-4.8) Calcium Level 9.3 mg/dL (8.7-10.4) Total Protein 6.6 g/dL (5.7-8.2) LFT Test 08/10/24 11:36 Alanine Aminotransferase (ALT) 60 U/L (7-40) H Alkaline Phosphatase 56 U/L (46-116) Aspartate Amino Transferase (AST) 68 U/L (13-40) H Total Bilirubin 5.0 mg/dL (0.2-1.0) H Urinalysis Test 08/07/24 21:26 Urine Color Dark-yellow (Yellow) Urine Clarity Clear (Clear) Urine pH 5.5 (5.0-9.0) Urine Specific [place] 1.031 (1.001-1.035) Urine Protein Trace (Negative) H Urine Ketones Trace (Negative) Urine Blood Negative /uL (Negative) Urine Nitrite Negative (Negative) Urine Bilirubin Negative (Negative) Urine Urobilinogen 12 mg/dL (Negative) H Urine Leukocyte Esterase Negative /uL (Negative) Urine RBC 1 /hpf (0 - 3) Urine Microscopic WBC 1 /HPF (0-3) Urine Squamous Epithelial Cells None seen /hpf (<5) Urine Bacteria Few /hpf (None Seen) H Urine Mucus Few (None Seen) Urine Glucose Normal mg/dL (Normal) Labs and/or images reviewed: Labs reviewed by me, Image(s) reviewed by me Assessment/Plan Assessment/Plan Impression: -pancytopenia -diabetes mellitus -jaundice, rule out liver disease -dyslipidemia Plan: Events: CT scan of chest, abdomen, pelvis with contrast was ordered. Results reviewed with the patient. Discussed elevated LDH, pancytopenia, as well as direct indirect Brandon test being negative. Patient was agreeable for bone marrow biopsy. IR consultation placed. -liver ultrasound: unremarkable -gentle IV hydration -higher consultation for bone marrow biopsy -regular insulin sliding scale -pain management 08/10/2024: pending a bone marrow biopsy from IR also consulting oncology/gastroenterology 08/11/2024: pending biopsy on monday (bone marrow) Total time spent with patient discussing and formulating plan of care: 35 minutes. Plan discussed with: Patient My Orders Orders - ROJELIO BRANCH DO Procedure Category Date Status Time * Gu Consult CONS 08/10/24 Transmitted 12:09 Date of Service: Aug 11, 2024 Billing Provider: ROJELIO BRANCH DO Common Visit Codes: [id number] INP/OBS CARE(HIGH) ROJELIO BRANCH DO Aug 11, 2024 11:07
[2024-08-11 12:15] LABS: Basophils # (auto) 0 10 ^3/uL (0-0.2); Basophils % (auto) 0.2 % (0.0-2.0); Eosinophils # (auto) 0.1 10 ^3/uL (0-0.8); Hematocrit 24.1 % (41.0-53.0); Hemoglobin 8.7 g/dL (13.5-17.5); Lymphocytes # (auto) 1.1 10 ^3/uL (0.4-5.4); Monocytes # (auto) 0.1 10 ^3/uL (0-1.3); Red Blood Cells 2.14 10^6/uL (4.5-5.90); White Blood Cell 3.3 10^3/uL (4.4-10.8)
[2024-08-11 12:16] LABS: Mean Corpuscular Hemoglobin 40.4 pg (28.0-32.0); Mean Corpuscular Hgb Conc. 35.9 g/dL (32.0-36.0); Mean Corpuscular Volume 112.5 fL (80.0-100.0); Monocytes % (auto) 2.1 % (0.0-12.0); Neutrophils % (auto) 61.7 % (37.0-80.0); Nucleated Red Blood Cells % 0.3 %; Platelet Count (auto) 103 10^3/uL (140-450)
[2024-08-11 12:19] LABS: Red Cell Distribution Width 21.8 % (11.8-14.3)
[2024-08-11 12:29] LABS: Albumin 4.7 g/dL (3.2-4.8); Alkaline Phosphatase 60 U/L (46-116); Anion Gap 8 (5-15); BUN/Creatinine Ratio 15.2 (10.0-20.0); Blood Urea Nitrogen 12 mg/dL (9-23); Calcium 9.7 mg/dL (8.7-10.4); Carbon Dioxide 28 mmol/L (20-31); Chloride 102 mmol/L (98-107); Potassium 4.2 mmol/L (3.5-5.1); Sodium 138 mmol/L (136-145)
[2024-08-11 12:30] LABS: Alanine Aminotransferase 65 U/L (7-40); Aspartate Aminotransferase 78 U/L (13-40); Glucose 164 mg/dL (74-106)
[2024-08-11 12:40] LABS: Anisocytosis Moderate; Macrocytosis Marked; Platelet Estimate Decreased; Tear Drop Cells FEW
[2024-08-11] MEDS: IOHEXOL 300 MG/ML 100ML BOTTLE IJ ONE (19:03)
[2024-08-12] VITALS (9 sets, daily range): BP systolic 92–127; BP diastolic 55–76; PULSE 68–120; RESP 16–20; TEMP 97.6–99.3; O2SAT 97–100
[2024-08-12] MEDS: fentaNYL CITRATE 100 MCG/2 ML VL IV ONE (08:45)
[2024-08-12] MEDS: MIDAZOLAM HCL 2MG/2ML 2ml VIAL (1mg/ml) IV ONE (08:45)
[2024-08-12] MEDS: LIDOCAINE 2%HCL (LOCAL ANESTH.) INJ 10ml MDV ONE (08:45)
--- NOTE | 2024-08-12 12:21 | DVH ---
CT CT GUIDANCE FOR NEEDLE PLACEME, HISTORY: BONE MARROW BX COMPARISON: None PROCEDURE: Informed consent and time-out was performed before the procedure. Conscious sedation was p erformed by the interventional radiology nurse. The right posterior pelvic bone was marked, sterilize d, draped, and locally anesthetized using approximately 8 ml of 1% lidocaine. Axial CT images were us ed for localization. A 11 gauge [email or web address] Bone Biopsy kit was used to take 13 mL aspirate and 1 core. The biopsy needle was then removed. No immediate complications noted. FINDINGS: Axial CT images demonstrates biopsy needle within the right posterior pelvic bone. IMPRESSION: Successful CT-guided biopsy of the right posterior pelvic bone.
--- NOTE | 2024-08-12 12:21 | DVH ---
CT CT GUIDANCE FOR NEEDLE PLACEME, HISTORY: BONE MARROW BX COMPARISON: None PROCEDURE: Informed consent and time-out was performed before the procedure. Conscious sedation was p erformed by the interventional radiology nurse. The right posterior pelvic bone was marked, sterilize d, draped, and locally anesthetized using approximately 8 ml of 1% lidocaine. Axial CT images were us ed for localization. A 11 gauge [employer] Bone Biopsy kit was used to take 13 mL aspirate and 1 core. The biopsy needle was then removed. No immediate complications noted. FINDINGS: Axial CT images demonstrates biopsy needle within the right posterior pelvic bone. IMPRESSION: Successful CT-guided biopsy of the right posterior pelvic bone.
--- NOTE | 2024-08-12 12:26 | DVHPN2 ---
Subjective Patient denies any symptoms, Reviewed: Care Plan, H&P, Labs, Medications, Previous Orders Changes from previous H/P or p: No Changes General: Per HPI Objective Vitals Vital Signs Date Time Temp Pulse Resp B/P (MAP) Pulse Ox O2 Delivery O2 Flow Rate FiO2 08/12/24 09:25 98.0 78 16 102/64 (77) 98 98.0 08/12/24 08:00 Room Air* 0 21 Intake/Output Intake and Output 08/12/24 07:00 Intake Total 1400 ml Balance 1400 ml Intake Oral 1400 ml # Voids 7 # Bowel Movements 1 General Appearance: Alert, Oriented X3, Cooperative, No acute distress HEENT: Atraumatic, PERRLA Lungs: Clear to auscultation, Normal air movement Cardiovascular: Normal S1, Normal S2 Abdomen: Normal bowel sounds, Soft Skin: Dry, Intact, Other (Jaundice) Psych/Mental Status: Mental status NL, Mood NL Medications Current Medications Medications Dose Ordered Sig/Sheela Route Start Time Stop Time Status Last Admin Dose Admin Ondansetron HCl 4 mg Q4HP PRN IV 08/07/24 23:15 Acetaminophen/ Hydrocodone Bitart 1 tab Q6HPRN PRN PO 08/08/24 15:15 Acetaminophen 500 mg Q8HP PRN PO 08/08/24 15:15 08/09/24 12:32 500 MG Docusate Sodium 100 mg BID PRN PO 08/08/24 15:15 Diagnostic Test (Pha) 1 strip ACHS 08/08/24 17:00 08/12/24 11:34 1 STRIP Insulin Human Regular ACHS SC 08/08/24 17:00 08/11/24 21:34 3 UNITS Dextrose 50 ml UD PRN IV 08/08/24 15:15 Laboratory Results Laboratory Tests 08/11/24 11:56 Urinalysis Test 08/07/24 21:26 Urine Color Dark-yellow (Yellow) Urine Clarity Clear (Clear) Urine pH 5.5 (5.0-9.0) Urine Specific [place] 1.031 (1.001-1.035) Urine Protein Trace (Negative) H Urine Ketones Trace (Negative) Urine Blood Negative /uL (Negative) Urine Nitrite Negative (Negative) Urine Bilirubin Negative (Negative) Urine Urobilinogen 12 mg/dL (Negative) H Urine Leukocyte Esterase Negative /uL (Negative) Urine RBC 1 /hpf (0 - 3) Urine Microscopic WBC 1 /HPF (0-3) Urine Squamous Epithelial Cells None seen /hpf (<5) Urine Bacteria Few /hpf (None Seen) H Urine Mucus Few (None Seen) Urine Glucose Normal mg/dL (Normal) Labs and/or images reviewed: Labs reviewed by me, Image(s) reviewed by me Assessment/Plan Assessment/Plan Impression: -pancytopenia -diabetes mellitus -jaundice, rule out liver disease -dyslipidemia Plan: Events: Patient had bone marrow biopsy today. Denies any symptoms. CT scan of the chest abdomen and pelvis as well as liver ultrasound unremarkable other than mild splenomegaly. -liver ultrasound: unremarkable -GI consultation was obtained over the weekend. Recommendations reviewed -repeat labs today including LIYA, hep panel, HIV -regular insulin sliding scale -pain management Total time spent with patient discussing and formulating plan of care: 35 minutes. This medical document was created using an electronic medical record system with [employer] dictation system. Although this document has been carefully reviewed, there may still be some phonetic and typographical errors. These areas are purely typographical due to imperfections of the software programs, and do not reflect any compromise in the patient's medical care. Plan discussed with: Patient, Spouse, Other (RN) My Orders Orders - AGUSTIN MONCADA NP Procedure Category Date Status Time Acute Hepatitis Panel LAB 08/12/24 Transmitted 12:21 Hiv 1&2 Antibody LAB 08/12/24 Transmitted 12:21 Complete Blood Count LAB 08/12/24 Transmitted 12:21 Comprehensive LAB 08/12/24 Transmitted Metabolic Panel 12:21 Liya; Comprehensive LAB 08/12/24 Transmitted Panel 12:21 Drug Screen LAB 08/12/24 Verified 12:23 Date of Service: Aug 12, 2024 Billing Provider: AGUSTIN MONCADA NP Common Visit Codes: [id number] INP/OBS CARE(HIGH) AGUSTIN MONCADA NP Aug 12, 2024 12:26
[2024-08-12 13:58] LABS: Basophils # (auto) 0 10 ^3/uL (0-0.2); Eosinophils # (auto) 0 10 ^3/uL (0-0.8); Hemoglobin 8.3 g/dL (13.5-17.5); Lymphocytes # (auto) 0.9 10 ^3/uL (0.4-5.4); Monocytes # (auto) 0 10 ^3/uL (0-1.3); Neutrophils # (auto) 1.7 10 ^3/uL (1.6-8.6); White Blood Cell 2.7 10^3/uL (4.4-10.8)
[2024-08-12 14:01] LABS: Basophils % (auto) 0.2 % (0.0-2.0); Eosinophils % (auto) 1.9 % (0.0-7.0); Lymphocytes % (auto) 33.6 % (10.0-50.0); Mean Corpuscular Hgb Conc. 36.2 g/dL (32.0-36.0); Mean Corpuscular Volume 110.4 fL (80.0-100.0); Monocytes % (auto) 1.8 % (0.0-12.0); Neutrophils % (auto) 62.5 % (37.0-80.0); Nucleated Red Blood Cells % 0.4 %; Platelet Count (auto) 97 10^3/uL (140-450); Red Blood Cells 2.08 10^6/uL (4.5-5.90)
[2024-08-12 14:09] LABS: Albumin 4.3 g/dL (3.2-4.8); Alkaline Phosphatase 54 U/L (46-116); Anion Gap 7 (5-15); BUN/Creatinine Ratio 17.3 (10.0-20.0); Blood Urea Nitrogen 14 mg/dL (9-23); Calcium 9.3 mg/dL (8.7-10.4); Carbon Dioxide 28 mmol/L (20-31); Chloride 104 mmol/L (98-107); Potassium 4.3 mmol/L (3.5-5.1); Sodium 139 mmol/L (136-145); Total Protein 6.6 g/dL (5.7-8.2)
[2024-08-12 14:11] LABS: Alanine Aminotransferase 62 U/L (7-40); Aspartate Aminotransferase 77 U/L (13-40); Bilirubin, Total 4.6 mg/dL (0.2-1.0); Glucose 208 mg/dL (74-106)
[2024-08-12 15:18] LABS: Hepatitis A Ab IgM Negative; Hepatitis B Core IgM Negative (Negative); Hepatitis B Surface Antigen Negative (Negative); Hepatitis C Antibody Negative (Negative)
[2024-08-12 15:45] LABS: Platelet Estimate Adequate
[2024-08-12 15:46] LABS: Anisocytosis Moderate; Large Platelets FEW; Macrocytosis Marked
[2024-08-12 15:47] LABS: Tear Drop Cells FEW
[2024-08-13] VITALS (8 sets, daily range): BP systolic 91–110; BP diastolic 52–66; PULSE 79–89; RESP 16–20; TEMP 97.8–98.7; O2SAT 97–100
--- NOTE | 2024-08-13 10:17 | DVHPN2 ---
Subjective Patient denies any symptoms, Reviewed: Care Plan, H&P, Labs, Medications, Previous Orders Changes from previous H/P or p: No Changes General: Per HPI Objective Vitals Vital Signs Date Time Temp Pulse Resp B/P (MAP) Pulse Ox O2 Delivery O2 Flow Rate FiO2 08/13/24 08:00 83 18 99 Room Air* 0 21 08/13/24 05:00 97.8 93/52 (66) 97.8 Intake/Output Intake and Output 08/13/24 07:00 Intake Total 1300 ml Balance 1300 ml Intake Oral 1300 ml # Voids 5 General Appearance: Alert, Oriented X3, Cooperative, No acute distress HEENT: Atraumatic, PERRLA Lungs: Clear to auscultation, Normal air movement Cardiovascular: Normal S1, Normal S2 Abdomen: Normal bowel sounds, Soft Skin: Dry, Intact, Other (Jaundice) Psych/Mental Status: Mental status NL, Mood NL Medications Current Medications Medications Dose Ordered Sig/Sheela Route Start Time Stop Time Status Last Admin Dose Admin Ondansetron HCl 4 mg Q4HP PRN IV 08/07/24 23:15 Acetaminophen/ Hydrocodone Bitart 1 tab Q6HPRN PRN PO 08/08/24 15:15 Acetaminophen 500 mg Q8HP PRN PO 08/08/24 15:15 08/09/24 12:32 500 MG Docusate Sodium 100 mg BID PRN PO 08/08/24 15:15 Diagnostic Test (Pha) 1 strip ACHS 08/08/24 17:00 08/13/24 06:40 1 STRIP Insulin Human Regular ACHS SC 08/08/24 17:00 08/12/24 21:38 3 UNITS Dextrose 50 ml UD PRN IV 08/08/24 15:15 Laboratory Results Laboratory Tests 08/12/24 13:19 Chemistry Test 08/12/24 13:19 Albumin 4.3 g/dL (3.2-4.8) Calcium Level 9.3 mg/dL (8.7-10.4) Total Protein 6.6 g/dL (5.7-8.2) LFT Test 08/12/24 13:19 Alanine Aminotransferase (ALT) 62 U/L (7-40) H Alkaline Phosphatase 54 U/L (46-116) Aspartate Amino Transferase (AST) 77 U/L (13-40) H Total Bilirubin 4.6 mg/dL (0.2-1.0) H Urinalysis Test 08/07/24 21:26 Urine Color Dark-yellow (Yellow) Urine Clarity Clear (Clear) Urine pH 5.5 (5.0-9.0) Urine Specific [place] 1.031 (1.001-1.035) Urine Protein Trace (Negative) H Urine Ketones Trace (Negative) Urine Blood Negative /uL (Negative) Urine Nitrite Negative (Negative) Urine Bilirubin Negative (Negative) Urine Urobilinogen 12 mg/dL (Negative) H Urine Leukocyte Esterase Negative /uL (Negative) Urine RBC 1 /hpf (0 - 3) Urine Microscopic WBC 1 /HPF (0-3) Urine Squamous Epithelial Cells None seen /hpf (<5) Urine Bacteria Few /hpf (None Seen) H Urine Mucus Few (None Seen) Urine Glucose Normal mg/dL (Normal) Labs and/or images reviewed: Labs reviewed by me, Image(s) reviewed by me Assessment/Plan Assessment/Plan Impression: -pancytopenia -diabetes mellitus -jaundice, rule out liver disease -dyslipidemia Plan: Events: No events overnight. Bone marrow biopsy pending. HIV, hep panel negative. LIYA pending -GI consultation was obtained over the weekend. Recommendations reviewed -out of bed as tolerated. May shower. -regular insulin sliding scale -pain management Total time spent with patient discussing and formulating plan of care: 35 minutes. This medical document was created using an electronic medical record system with [employer] dictation system. Although this document has been carefully reviewed, there may still be some phonetic and typographical errors. These areas are purely typographical due to imperfections of the software programs, and do not reflect any compromise in the patient's medical care. Plan discussed with: Patient, Spouse, Other (RN) My Orders Orders - AGUSTIN MONCADA NP Procedure Category Date Status Time Liya; Comprehensive LAB 08/12/24 In Process Panel 12:21 Drug Screen LAB 08/12/24 Logged 12:23 Date of Service: Aug 13, 2024 Billing Provider: AGUSTIN MONCADA NP Common Visit Codes: [id number] INP/OBS CARE(HIGH) AGUSTIN MONCADA NP Aug 13, 2024 10:17
[2024-08-13 13:07] LABS: Anti-Centromere B Antibody <0.2 AI (0.0-0.9); Anti-Jo-1 Antibody <0.2 AI (0.0-0.9); Anti-dsDNA Antibody <1 IU/mL (0-9); Antichromatin Antibody <0.2 AI (0.0-0.9); Antiscleroderma-70 Antibody <0.2 AI (0.0-0.9); RNP Antibody 0.2 AI (0.0-0.9); Sjogren's Anti-SS-A Antibody <0.2 AI (0.0-0.9); Sjogren's Anti-SS-B Antibody <0.2 AI (0.0-0.9); Smith Antibody <0.2 AI (0.0-0.9)
[2024-08-13 22:06] LABS: Vitamin D 25-Hydroxy 9.5 ng/mL (.); Vitamin D-2 25-Hydroxy <1.0 ng/mL (.); Vitamin D-3 25-Hydroxy 9.5 ng/mL (.)
[2024-08-14 01:00] VITALS: BP 94/58; PULSE 78; RESP 16; TEMP 98.3; O2SAT 96
[2024-08-14 05:00] VITALS: BP 95/52; PULSE 83; RESP 16; TEMP 98.4; O2SAT 96
[2024-08-14 08:00] VITALS: PULSE 79; RESP 20; O2SAT 97
[2024-08-14 09:00] VITALS: BP 93/56; PULSE 79; RESP 20; TEMP 98.1; O2SAT 97
[2024-08-14 13:00] VITALS: BP 101/60; PULSE 84; RESP 20; TEMP 98.3; O2SAT 100
--- NOTE | 2024-08-14 13:57 | DVHDS2 ---
Discharge Summary Date of Admission Aug 07, 2024 at 23:10 Date of Discharge: Aug 14, 2024 Admitting Diagnosis Pancytopenia Labs/Diagnostic Data: Laboratory Results Test 08/14/24 05:48 08/12/24 13:19 08/11/24 11:56 08/09/24 13:34 POC Glucose 91 mg/dl (70-106) White Blood Count 2.7 10^3/uL (4.4-10.8) Red Blood Count 2.08 10^6/uL (4.5-5.90) Hemoglobin 8.3 g/dL (13.5-17.5) Hematocrit 23.0 % (41.0-53.0) Mean Corpuscular Volume 110.4 fL (80.0-100.0) Mean Corpuscular Hemoglobin 40.0 pg (28.0-32.0) Mean Corpuscular Hemoglobin Concent 36.2 g/dL (32.0-36.0) Red Cell Distribution Width 21.0 % (11.8-14.3) Platelet Count 97 10^3/uL (140-450) Mean Platelet Volume 8.2 fL (6.9-10.8) Neutrophils (%) (Auto) 62.5 % (37.0-80.0) Lymphocytes (%) (Auto) 33.6 % (10.0-50.0) Monocytes (%) (Auto) 1.8 % (0.0-12.0) Eosinophils (%) (Auto) 1.9 % (0.0-7.0) Basophils (%) (Auto) 0.2 % (0.0-2.0) Neutrophils # (Auto) 1.7 10 ^3/uL (1.6-8.6) Lymphocytes # (Auto) 0.9 10 ^3/uL (0.4-5.4) Monocytes # (Auto) 0 10 ^3/uL (0-1.3) Eosinophils # (Auto) 0 10 ^3/uL (0-0.8) Basophils # (Auto) 0 10 ^3/uL (0-0.2) Nucleated Red Blood Cells 0.4 % Platelet Estimate Adequate Large Platelets Few Anisocytosis (manual) Moderate Macrocytosis Marked Tear Drop Cells Few Sodium Level 139 mmol/L (136-145) Potassium Level 4.3 mmol/L (3.5-5.1) Chloride Level 104 mmol/L (98-107) Carbon Dioxide Level 28 mmol/L (20-31) Anion Gap 7 (5-15) Blood Urea Nitrogen 14 mg/dL (9-23) Creatinine 0.81 mg/dL (0.700-1.30) Glomerular Filtration Rate Calc 114 mL/min (>90) BUN/Creatinine Ratio 17.3 (10.0-20.0) Serum Glucose 208 mg/dL (74-106) Calcium Level 9.3 mg/dL (8.7-10.4) Total Bilirubin 4.6 mg/dL (0.2-1.0) Aspartate Amino Transferase (AST) 77 U/L (13-40) Alanine Aminotransferase (ALT) 62 U/L (7-40) Alkaline Phosphatase 54 U/L (46-116) Total Protein 6.6 g/dL (5.7-8.2) Albumin 4.3 g/dL (3.2-4.8) Anti-Nuclear Antibody Comment Comment (.) MARCEL-1 Antibody <0.2 AI (0.0-0.9) SS-A/Ro Antibody <0.2 AI (0.0-0.9) SS-B/La Antibody <0.2 AI (0.0-0.9) Sm Antibody <0.2 AI (0.0-0.9) MACHINE SPRING FORMER Antibody 0.2 AI (0.0-0.9) Scl-70 (Scleroderma) Antibody <0.2 AI (0.0-0.9) Anti-Double Strand DNA Antibody <1 IU/mL (0-9) Chromatin Antibody <0.2 AI (0.0-0.9) Centromere B Antibody <0.2 AI (0.0-0.9) Hepatitis A IgM Antibody Negative Hepatitis B Surface Antigen Negative (Negative) Hepatitis B Core IgM Antibody Negative (Negative) Hepatitis C Antibody Negative (Negative) HIV (1&2) Antibody Negative (Negative) Poikilocytosis (manual) Slight Prothrombin Time 11.3 sec (9.3-11.8) Prothrombin Time INR 1.07 (0.9-1.15) Activated Partial Thromboplast Time 23.9 SEC (24.5-34.5) Test 08/08/24 16:57 08/08/24 00:57 08/07/24 23:31 08/07/24 21:26 Erythrocyte Sedimentation Rate 25 mm/hr (0-20) Haptoglobin <10 mg/dL (17-317) Hemoglobin A1c 5.9 % A1C (<5.7) Lactate Dehydrogenase 2184 U/L (120-246) C-Reactive Protein High Sensitivity 0.20 mg/dL (<1.0) Triglycerides Level 180 mg/dL (< 150) Cholesterol Level 98 mg/dL (< 200) LDL Cholesterol 51 mg/dL (< 100) HDL Cholesterol 16 mg/dL (40-59) Vitamin B12 Level 54 pg/mL (211-911) Vitamin D 25-Hydroxy 9.5 ng/mL (.) 25-Hydroxy Vitamin D2 <1.0 ng/mL (.) 25-Hydroxy Vitamin D3 9.5 ng/mL (.) Influenza Type A Antigen Negative (Negative) Influenza Type B Antigen Negative (Negative) SARS-CoV-2 Antigen (Rapid) Negative (NEGATIVE) Iron Level 168 ug/dL (65-175) Total Iron Binding Capacity 288 ug/dL (250-425) Percent Iron Saturation 58.3 % (20-55) Urine Color Dark-yellow (Yellow) Urine Clarity Clear (Clear) Urine pH 5.5 (5.0-9.0) Urine Specific [place] 1.031 (1.001-1.035) Urine Protein Trace (Negative) Urine Ketones Trace (Negative) Urine Blood Negative /uL (Negative) Urine Nitrite Negative (Negative) Urine Bilirubin Negative (Negative) Urine Urobilinogen 12 mg/dL (Negative) Urine Leukocyte Esterase Negative /uL (Negative) Urine RBC 1 /hpf (0 - 3) Urine Microscopic WBC 1 /HPF (0-3) Urine Squamous Epithelial Cells None seen /hpf (<5) Urine Bacteria Few /hpf (None Seen) Urine Mucus Few (None Seen) Urine Glucose Normal mg/dL (Normal) Test 08/07/24 20:29 Polychromasia Slight Stomatocytes Few Other Laboratory Tests 08/12/24 13:19 Brief Hx & Hospital Course: History of Present Illness 38-year-old male presents for evaluation of generalized weakness. Patient reports a two week history of generalized weakness with associated fatigue, nausea, shortness for breath. He reports a history of leukemia which was diagnosed at a young age. Denies any recent weight loss. No chest pain or palpitations. No other acute complaints reported. Course of hospitalization: Patient was noted to have transaminitis, with noted jaundice skin. Patient had liver ultrasound which was unremarkable followed by CT scan of the chest, abdomen, pelvis which showed minor splenomegaly. Patient's repeat CBC had persistent pancytopenia with worsening anemia, for which the patient received1 unit of PRBCs. Patient had hepatitis panel which was negative, HIV went into his negative, as well as the patient having negative Brandon test as well as haptoglobin being normal. Long discussion was made with the patient regarding further testing which included bone marrow biopsy which was essentially unremarkable. This was discussed with the patient. Patient will be discharged home as instructed to follow up in his PCP, and have follow up with Hematology. Patient was agreeable with discharge plan. All questions answered. Physical examination General: Alert and Oriented x3. No acute distress. Well-nourished. Eyes: EOMI. Anicteric. HENT: Moist mucous membranes. Lungs: Clear to auscultation bilaterally. No accessory muscle use. Cardiovascular: Regular rate and rhythm. No murmur. No JVD. Abdomen: Soft, non-tender and non-distended. No palpable masses. Extremities: No edema. Non-tender. Skin: No rashes or lesions. Warm. Jaundiced Neurologic: No focal neurological deficits. CN II-XII grossly intact, but not individually tested. Psychiatric: Cooperative. Appropriate mood and affect. Total time spent with patient discussing and formulating plan of care: 35 minutes. This medical document was created using an electronic medical record system with [employer] dictation system. Although this document has been carefully reviewed, there may still be some phonetic and typographical errors. These areas are purely typographical due to imperfections of the software programs, and do not reflect any compromise in the patient's medical care. Condition at Discharge: Fair Final Diagnosis/Problems List Pancytopenia Secondary diagnosis: Transaminitis Diabetes mellitus Obesity Discharge Disposition: Home Discharge Instruct/Medications Diet: Consistent carbohydrate Activity: No Restrictions, As Tolerated Follow Up/Referral: PCP Dr. Perez in 1-2 weeks Recommend referral to Hematology Medications: Continue all home medications 36 Discharge Statement: "Patient was advised to return to the ER or call 911 if any headaches, dizziness, shortness of breath, chest pain, abdominal pain, bleeding, fevers, or worsening of medical condition. Patient was counseled about treatment plan, medications, possible side effects, patientverbalized understanding. All questions were answered to the best of my ability. This discharge took greater then 30 minutes in planning, reviewing documentation, counseling the patient, and discussing with other team members." ASSESSMENT ASSESSMENT Assessment Pancytopenia Date of Service: Aug 14, 2024 Billing Provider: AGUSTIN MONCADA NP Common Visit Codes: 75631-RZB/OBS DISCH DAY >30min AGUSTIN MONCADA NP Aug 14, 2024 13:57
== END 2024-08-14 14:35 | disposition home or self-care (01) | DRG 803 ==
LOC: ER 19:58 → OVERFLOW 23:10 → CENTRAL 08-08 15:01
PROVIDERS: ADMIT Nurse Practitioner Acute Care; ATTEND Nurse Practitioner Acute Care
PROC: 30233N1 Transfusion of Nonautologous Red Blood Cells into Peripheral Vein, Percutaneous Approach (ICD-10-PCS; principal; 2024-08-09)
PROC: 0Q923ZX Drainage of Right Pelvic Bone, Percutaneous Approach, Diagnostic (ICD-10-PCS; 2024-08-12)
PROC: 0QB23ZX Excision of Right Pelvic Bone, Percutaneous Approach, Diagnostic (ICD-10-PCS; 2024-08-12)
DX: D61.818 Other pancytopenia (principal); R17 Unspecified jaundice; Z20.822 Contact with and (suspected) exposure to COVID-19; R74.01 Elevation of levels of liver transaminase levels; E11.9 Type 2 diabetes mellitus without complications; E78.5 Hyperlipidemia, unspecified; E66.9 Obesity, unspecified; F17.210 Nicotine dependence, cigarettes, uncomplicated; R16.1 Splenomegaly, not elsewhere classified; Z98.1 Arthrodesis status; Z83.3 Family history of diabetes mellitus; Z85.6 Personal history of leukemia; Z79.84 Long term (current) use of oral hypoglycemic drugs; Z79.899 Other long term (current) drug therapy; Z68.26 Body mass index [BMI] 26.0-26.9, adult
CPT/HCPCS: 10005; 36415; 71260; 72192; 74177; 76705; 77012; 80048; 80053; 80061; 80074; 81001; 82306; 82607; 82962; 83010; 83036; 83516; 83540; 83550; 83615; 84425; 85025; 85610; 85652; 85730; 86141; 86225; 86235; 86703; 86850; 86880; 86885; 86900; 86901; 86920; 87426; 87804; 96360; G0378; J1815; J2003; J2250